=== PATIENT | female | born 1975 | race Asian ===

== ENCOUNTER 2020-10-03 21:44 | Emergency (ER) | payer MEDICAID ==
[~2020-10-03] VITALS: Ht 162.6 cm; Wt 91.6 kg
[2020-10-03 21:50] VITALS: BP_SYST 142
[2020-10-03] MEDS ORDERED: KETOROLAC TROMETHAMINE 60 MG/2 ML VIAL IM ONE ×2 (22:28→22:30)
[2020-10-04 00:06] VITALS: BP_SYST 142
== END 2020-10-04 00:06 | disposition home or self-care (01) ==
LOC: SED 21:44
DX: S83.8X1A Sprain of other specified parts of right knee, initial encounter (principal); S93.501A Unspecified sprain of right great toe, initial encounter; I10 Essential (primary) hypertension; W18.39XA Other fall on same level, initial encounter; Y93.89 Activity, other specified; Y92.481 Parking lot as the place of occurrence of the external cause; Y99.8 Other external cause status
CPT/HCPCS: 29505; 73564; 73630; 96372; 99284; J1885